=== PATIENT | female | born 1970 | race Caucasian/White ===

== ENCOUNTER 2019-03-16 18:33 | Inpatient (IN) | payer OTHER ==
[~2019-03-16] VITALS: Ht 167.6 cm; Wt 60.8 kg
[2019-03-16 19:00] VITALS: BP 110/71
[2019-03-16 19:54] LABS: HEMATOCRIT 34.5 % (37.0-47.0); HEMOGLOBIN 11.6 gm/dL (12.0-15.0); MCH 29.4 pg (26.0-34.0); MCHC 33.6 g/dL (28.0-37.0); MCV 87.5 fL (80.0-100.0); PLATELET COUNT 233 thou/uL (150-400); RBC 3.94 mil/uL (4.20-5.00); RDW 13.7 % (10.5-14.5); WBC 20.1 thou/uL (4.0-11.0)
[2019-03-16 20:17] LABS: ABSOLUTE NEUTROPHILS 18.9 thou/uL (1.4-8.2)
[2019-03-16 20:18] LABS: ALBUMIN 2.2 g/dL (3.4-5.0); ANION GAP 8 mmol/L (7-16); BUN 7 mg/dL (7-18); CALCIUM 8.3 mg/dL (8.5-10.1); CHLORIDE 100 mmol/L (98-107); CO2 26 mmol/L (21-32); CREATININE 0.8 mg/dL (0.6-1.0); GLUCOSE 117 mg/dL (74-106); LIPASE 38 U/L (73-393); SGOT 102 U/L (15-37); SGPT 74 U/L (30-65); SODIUM 134 mmol/L (136-145); TOTAL BILIRUBIN 0.9 mg/dL (<0.1-1.0); TROPONIN-I <0.06 ng/mL (<0.06)
[2019-03-16 20:19] LABS: POTASSIUM 2.8 mmol/L (3.5-5.1)
[2019-03-16 21:26] LABS: URINE BILIRUBIN 2+ (Negative); URINE BLOOD 1+ (Negative); URINE CLARITY CLEAR; URINE COLOR YELLOW; URINE GLUCOSE-RANDOM* TRACE (Negative); URINE KETONES NEGATIVE (Negative); URINE LEUKOCYTES-REFLEX NEGATIVE (Negative); URINE NITRITE-REFLEX NEGATIVE (Negative); URINE PROTEIN (DIPSTICK) TRACE (Negative); URINE UROBILINOGEN >= 8.0 E.U./dl (0.2-1.0)
[2019-03-16 21:29] LABS: ICTOTEST (BILI CONFIRMATORY) Positive (Negative)
[2019-03-16 21:39] LABS: SQUAMOUS >10 Many /LPF (0-3)
[2019-03-16 21:41] LABS: URINE WBC-REFLEX 0-5 Rare /HPF (0-5)
[2019-03-16 21:42] LABS: AMORPHOUS URATES Few /LPF (None Seen); BACTERIA-REFLEX None Seen /HPF (None Seen); URINE RBC 0-2 Rare /HPF (0-2)
[2019-03-16 22:34] VITALS: BP 104/54
[2019-03-16 22:46] VITALS: BP 101/59
[2019-03-16 22:58] VITALS: BP 111/68
[2019-03-17 03:37] VITALS: BP 103/55
[2019-03-17 07:05] VITALS: BP 96/59
--- NOTE | 2019-03-17 08:25 | NUR ---
ASSUMED CARE OF PT AT 1900. A&Ox4, COOPERATIVE. VS STABLE, SR ON TELE, AFEBRILE. C/O PAIN DURING INSPIRATION AND COUGH, PAIN MEDS GIVEN WITH PARTIAL RELIEF. ABLE TO SLEEP PART OF SHIFT. ANTIBX GIVEN ORDERED. CULTURES SENT TO LAB. PROGRESSING TOWARDS POC GOALS.
[2019-03-17 10:51] VITALS: BP 100/58
[2019-03-17 12:32] LABS: HEMATOCRIT 32.8 % (37.0-47.0); HEMOGLOBIN 10.9 gm/dL (12.0-15.0); MCH 29.4 pg (26.0-34.0); MCHC 33.3 g/dL (28.0-37.0); MCV 88.3 fL (80.0-100.0); RBC 3.71 mil/uL (4.20-5.00); RDW 13.8 % (10.5-14.5); WBC 18.9 thou/uL (4.0-11.0)
[2019-03-17 12:46] LABS: CALCIUM 8.5 mg/dL (8.5-10.1); CREATININE 0.8 mg/dL (0.6-1.0); MAGNESIUM 2.1 mg/dL (1.8-2.4); POTASSIUM 3.5 mmol/L (3.5-5.1)
[2019-03-17 15:19] VITALS: BP 110/59
--- NOTE | 2019-03-17 15:47 | NUR ---
ASSUMED CARE OF PATIENT AT 0700. VITAL SIGNS STABLE. RECIEVED ULTRASOUND OF ABDOMEN AND CT OF CHEST TODAY WITH AND WITHOUT CONTRAST. PNEUMONIA SEEN ON CT. ULTRASOUND OF ABD FOR HX OF HEP C. PATIENT HAD CHEST PAIN WITH INSPIRATION THIS MORNING, MANAGED WITH PAIN MEDICATION. HOSPITALIST CONSULTED INFECTIOUS DISEASE AND PULMONARY TODAY. PULMONARY GAVE NURSE ORDERS OVER THE PHONE. PATIENT POSTIVE FOR MRSA IN NARES AND PLACED ON CONTACT PRECAUTIONS. CONTINUING TO MONITOR
[2019-03-17 19:30] VITALS: BP 128/59
[2019-03-18 01:05] LABS: IgA 449 mg/dL (87-352); IgG 1628 mg/dL (700-1600); IgM 126 mg/dL (26-217)
[2019-03-18 02:18] LABS: URINE BILIRUBIN NEGATIVE (Negative); URINE BLOOD TRACE (Negative); URINE CLARITY CLEAR; URINE COLOR YELLOW; URINE GLUCOSE-RANDOM* NEGATIVE (Negative); URINE KETONES NEGATIVE (Negative); URINE LEUKOCYTES TRACE (Negative); URINE NITRITE NEGATIVE (Negative); URINE PROTEIN (DIPSTICK) NEGATIVE (Negative)
--- NOTE | 2019-03-18 03:27 | NUR ---
ASSUMED CARE OF PATIENT AT 1900. VSS, AFEBRILE. C/O OF RIGHT SIDED PAIN, RELIEVED WITH PRN MEDICATIONS. UP AD FOREST. FLUIDS RUNNING PER ORDERS, SEE EMAR. NO S/S OF DISTRESS. WORKING TOWARDS POC GOALS.
[2019-03-18 03:55] VITALS: BP 122/85
[2019-03-18 05:32] LABS: HEMATOCRIT 30.4 % (37.0-47.0); HEMOGLOBIN 10.1 gm/dL (12.0-15.0); MCH 29.2 pg (26.0-34.0); MCHC 33.1 g/dL (28.0-37.0); MCV 88.3 fL (80.0-100.0); RBC 3.45 mil/uL (4.20-5.00); RDW 14.3 % (10.5-14.5); WBC 17.4 thou/uL (4.0-11.0)
[2019-03-18 05:55] LABS: CALCIUM 7.8 mg/dL (8.5-10.1); CREATININE 0.8 mg/dL (0.6-1.0)
[2019-03-18 08:19] VITALS: BP 127/69
--- NOTE | 2019-03-18 09:09 | EKG ---
[place] [address] [facility] [place] [address] ELECTROCARDIOGRAM REPORT Name: INDIA RUFF Room #: 357-P ADM IN M.R.#: [id number] Admission: 03/16/19 Attend Phys: Preet Badillo MD Discharge: Date of : 72 Report #: [id number] THIS REPORT FOR: //name// [facility] ED Test Date: 2019-03-16 Test Time: 18:39:20 Pat Name: INDIA RUFF Department: Room: 357 Gender: F Supportive Employment Case Manager: HARIKA : 1970 Requested By: Elke Campbell Order Number: [id number] MD: Donny Ordaz Measurements Intervals [place] Rate: 95 P: 81 MN: 148 QRS: 29 QRSD: 98 T: 83 QT: 343 QTc: 431 Interpretive Statements Sinus rhythm Baseline wander in lead(s) V3 No previous ECG available for comparison Electronically Signed On 03-18-2019 9:09:30 CDT by Donny Ordaz [email or web address] <ELECTRONICALLY SIGNED> By: Donny Ordaz MD, [facility] 03/18/19 0909 [id number] Donny Ordaz MD, FACC /EPI
[2019-03-18 12:13] VITALS: BP 140/86
--- NOTE | 2019-03-18 15:10 | NUR ---
assessment: cm reviewed chart and met with patient at the bedside. PT WAS ADMITTED WITH PNEUOMONIA. PT REPORTS THAT SHE LIVES WITH HER DAUGHTER. PT REPORTS SHE IS FULLY INDEPENDENT WITH ADLS AND AMBULATION. PT REPORTS THAT SHE HAS NOT HAD HH IN THE PAST NOR BEEN TO A SNF. PT REPORTS HAVING A NEBULIZER AT HOME. CM DISCUSSED ROLE. PT DOES NOT ANTICIPATE HAVING ANY NEEDS AT DISCHARGE. PT IS SHOWING PT PAY AND REPORTS SHE HAS NO INSURANCE BUT STATES SHE DID HAVE MEDICAID AT ONE POINT AND STATES SHE SPOKE WITH THEM LAST WEEK AND IT SHOULD GET RE-INSTATED SOON. CM CALLED LEENA IN PRECERT [phone] TO NOTIFY. CM ALSO PROVIDED PATIENT WITH FIND A PCP RESOURCE SHEET.
[2019-03-18 16:44] VITALS: BP 128/76
[2019-03-18 19:29] VITALS: BP 114/67
--- NOTE | 2019-03-18 20:18 | NUR ---
pt is A&OX3, PT is continuing IV abx , breathing treatment and pain management, pt 's vs and o2sat are stable, pt has sob with activites, pt has slowly meeting care plan goal.
[2019-03-19 04:18] VITALS: BP 123/91
[2019-03-19 07:07] LABS: COMPLEMENT-C3 131 mg/dL (82-167); COMPLEMENT-C4 22 mg/dL (14-44)
--- NOTE | 2019-03-19 08:04 | NUR ---
ASSESSMENTS CHARTED, MEDS GIVEN CHARTED. PATIENTS CONDITION WAS DOWN GRADED TO MS DURING SHIFT, TAKEN OFF TELEMETRY. ALERT AND ORIENTED DURING SHIFT. ON ROOM AIR DURING SHIFT. UP AT FOREST. PATIENT IN ISOLATION FOR MRSA COLONIZATION. PATIENT HAS OPEN WOUND ON RIGHT HIP COVERED WITH MEPELEX AFTER SHOWER, HAD BEEN SCABBED OVER AT ADMITTED. SCAB CAUGHT ON LINENS IN BED. VANCO TROUGH DRAWN THROUGH LEFT UPPER ARM PIV SINCE LAB WAS UNABLE TO DRAW. PIV KAIN AND FLUSH EASILY. PLAN IS FOR PATIENT TO CONTINUE ANTIBIOTIC TREATMENT FOR PNEUMONIA.
[2019-03-19 08:15] VITALS: BP 123/78
[2019-03-19] MEDS ORDERED: LEVAQUIN 500 M500 M1 PO (09:00)
[2019-03-19] MEDS ORDERED: RAYOS5 MG PO (09:01)
[2019-03-19] MEDS ORDERED: APAP/CODEINE ELI5 M1 PO (09:02)
[2019-03-19 09:10] LABS: GLYCOHEMOGLOBIN (HGB A1C) 5.3 % (4.8-5.6); HEMOGLOBIN 9.9 g/dL (11.1-15.9)
[2019-03-19 14:00] VITALS: BP 115/66
--- NOTE | 2019-03-19 15:20 | NUR ---
Pt. planning on discharge today. Was in a upbeat mood and talked about her love for history. Pt. had pain in the morning with a non productive cough. Pt. rated pain a 6 and was relieved with pain meds. Patient is afebrile. Patient is upablib and was cooperative with staff
[2019-03-19 17:43] VITALS: BP 115/66
--- NOTE | 2019-03-19 17:53 | NUR ---
PTis A&OX3, PT's coughing and sob have improved, RN has called ID about discharge to home order from DR elizondo, pt will take po abx after D/C , RN has done dischaging teaching, pt understands well, pt's family will last picker pt soon.
--- NOTE | 2019-03-19 18:16 | NUR ---
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
--- NOTE | 2019-03-19 22:00 | HC ---
[facility] [place] [place] [address] CONSULTATION Name: INDIA RUFF Room #: 357-P [facility] IN .R.#: [id number] Admission: 03/16/19 Attend Phys: Preet Badillo MD Discharge: 03/19/19 Date of : 72 Report #: [id number] THIS REPORT FOR: //name// CC: BHAVNA physician/PCP Preet Badillo DATE OF SERVICE: 03/18/2019 INFECTIOUS DISEASE CONSULTATION REASON FOR CONSULTATION: I was asked to evaluate concerning pneumonia and fever. HISTORY OF PRESENT ILLNESS: The patient is a 48-year-old who presents with shortness of breath, chest pain, fever up to 101.9 degrees. Pleuritic type chest pain. Cough with purulent sputum production. No hemoptysis. Previous smoker. Has a history of COPD. Also carries a history of systemic lupus erythematosus with multiple skin eruptions, although this is still inconclusive. She has had a history of MRSA, skin and soft tissue infections. She has been followed by Dr. Hale for several decades, now with no PCP. Has a history of hepatitis C. This has been untreated. No other HIV risk factors. States that she is HIV negative. No travel. No other known exposures. ALLERGIES: None known. MEDICATIONS: As noted on her MAR, having been started on vancomycin, Levaquin, cefepime. PAST MEDICAL HISTORY: COPD, lupus, hepatitis C, abdominal surgery for adhesions, multiple skin and soft tissue infections and bilateral breast implants. FAMILY HISTORY: Noncontributory. SOCIAL HISTORY: Smoker of cigarettes. No alcohol intake, history of marijuana and cocaine use. REVIEW OF SYSTEMS: Ten-point review was negative other than what has been described above. PHYSICAL EXAMINATION: [facility] [address] [place] [address] CONSULTATION Name: SPEEDYINDIA Maximilian Room #: 357-P [facility] IN [facility].#: [id number] Admission: 03/16/19 Attend Phys: Preet Badillo MD Discharge: 03/19/19 Date of : 72 Report #: [id number] VITAL SIGNS: Afebrile and hemodynamically stable. GENERAL: She is alert, cooperative and pleasant, in no acute distress. SKIN: With multiple excoriations over her buttock regions bilaterally, mostly laterally. Multiple scars to her face and upper chest region. No palpable adenopathy. Bilateral breast implants. EYES: Without scleral icterus. MOUTH: Without mucositis. NECK: Supple. LUNGS: Scattered crackles heard right base posteriorly. No consolidation. HEART: Regular, without murmur, gallop or rub. ABDOMEN: Soft with mild diffuse tenderness, no hepatosplenomegaly or mass appreciated. GENITORECTAL: Not performed. EXTREMITIES: Without clubbing, cyanosis or edema. NEUROLOGIC: Cranial nerves intact with normal strength upper and lower extremities with normal sensation. Mood was normal with no evidence of anxiety or depression. LABORATORY STUDIES: Hemoglobin 10.1, white count 17.4, platelet count 269,000. Sedimentation rate 60, creatinine 0.8. Liver function tests normal. C-reactive protein 192. Urinalysis without pyuria or bacteriuria. IgG 1628. NANO pending. Viral respiratory panel pending. Influenza antigen negative. MRSA screen positive. CT scan of the chest, COPD with advanced emphysema, upper lobe predominant right greater than left, multifocal consolidating pneumonia posterior right upper lobe, posterior right lower lobe. IMPRESSION: 1. Community-acquired pneumonia, multifocal, so far no organisms identified. 2. Neurodermatitis. 3. Methicillin-resistant Staphylococcus aureus colonization. 4. Hepatitis C. 5. Possible diagnosis of systemic lupus erythematosus. RECOMMENDATIONS: We will continue IV antibiotic therapy pending culture results. Treat neurodermatitis with anxiolytics and skin protection. Still unclear whether lupus is a true diagnosis. Await NANO. <ELECTRONICALLY SIGNED> By: Lito Baron MD 03/19/190 [id number] Lito Baron MD /nt
[2019-03-20 19:10] LABS: ANA INTERPRETATION Negative (())
[2019-03-21 09:49] LABS: ADENOVIRUS Negative (Negative); INFLUENZA A Negative (Negative); INFLUENZA B Negative (Negative); METAPNEUMOVIRUS Negative (Negative); PARAINFLUENZA 1 Negative (Negative); PARAINFLUENZA 2 Negative (Negative); PARAINFLUENZA 3 Negative (Negative); RHINOVIRUS Negative (Negative); RSV A Negative (Negative); RSV B Negative (Negative)
== END 2019-03-19 18:26 | disposition home or self-care (01) | DRG 871 ==
LOC: ER 18:33 → EROBS 21:49 → 3W 21:49
PROVIDERS: Nurse Practitioner Acute Care; Nurse Practitioner Family; ADMIT Internal Medicine
DX: A41.9 Sepsis, unspecified organism (principal); J15.6 Pneumonia due to other Gram-negative bacteria; J96.10 Chronic respiratory failure, unspecified whether with hypoxia or hypercapnia; E87.6 Hypokalemia; F17.210 Nicotine dependence, cigarettes, uncomplicated; L28.0 Lichen simplex chronicus; B19.20 Unspecified viral hepatitis C without hepatic coma; F14.90 Cocaine use, unspecified, uncomplicated; J43.9 Emphysema, unspecified; M32.9 Systemic lupus erythematosus, unspecified; R74.0 Nonspecific elevation of levels of transaminase and lactic acid dehydrogenase [LDH]; Z22.322 Carrier or suspected carrier of Methicillin resistant Staphylococcus aureus; Z71.6 Tobacco abuse counseling
CPT/HCPCS: 10080; 10879

== ENCOUNTER 2019-05-10 18:56 | Inpatient (IN) | payer OTHER ==
[~2019-05-10] VITALS: Ht 170.2 cm; Wt 64.9 kg
[~2019-05-10 18:56] MED LIST: APAP/CODEINE ELI5 M1 PO; LEVAQUIN 500 M500 M1 PO; RAYOS5 MG PO
[2019-05-10 18:57] VITALS: BP 128/69
[2019-05-10 21:11] LABS: ABSOLUTE NEUTROPHILS 6.9 thou/uL (1.4-8.2); BASOPHILS 0.6 % (0.0-2.0); EOSINOPHILS 4.9 % (0.0-3.0); HEMATOCRIT 36.4 % (37.0-47.0); HEMOGLOBIN 12.1 gm/dL (12.0-15.0); LYMPHOCYTES 18.6 % (24.0-44.0); MCH 28.4 pg (26.0-34.0); MCHC 33.3 g/dL (28.0-37.0); MCV 85.3 fL (80.0-100.0); MONOCYTES 6.8 % (1.0-8.0); PLATELET COUNT 218 thou/uL (150-400); POLYS 69.1 % (36.0-66.0); RBC 4.27 mil/uL (4.20-5.00); RDW 15.3 % (10.5-14.5); WBC 9.9 thou/uL (4.0-11.0)
[2019-05-10 21:23] LABS: CALCIUM 8.5 mg/dL (8.5-10.1); CREATININE 0.8 mg/dL (0.6-1.0); POTASSIUM 3.2 mmol/L (3.5-5.1)
[2019-05-10 21:28] LABS: ALBUMIN 2.5 g/dL (3.4-5.0); DIRECT BILIRUBIN 0.2 mg/dL (<0.1-0.2); TOTAL BILIRUBIN 0.4 mg/dL (<0.1-1.0); TOTAL PROTEIN 7.2 g/dL (6.4-8.2)
[2019-05-10 21:31] LABS: URINE BILIRUBIN NEGATIVE (Negative); URINE BLOOD 3+ (Negative); URINE CLARITY CLEAR; URINE COLOR YELLOW; URINE GLUCOSE-RANDOM* NEGATIVE (Negative); URINE KETONES NEGATIVE (Negative); URINE LEUKOCYTES-REFLEX TRACE (Negative); URINE NITRITE-REFLEX NEGATIVE (Negative); URINE PROTEIN (DIPSTICK) TRACE (Negative)
[2019-05-10] MEDS ORDERED: PROAIR HFA8.5 GM INH (21:31)
[2019-05-10 21:41] LABS: AMP/METHAMP POSITIVE (Negative); BARBITURATES Negative (Negative); BENZODIAZEPINES Negative (Negative); COCAINE Negative (Negative); METHADONE Negative (Negative); OPIATES POSITIVE (Negative); PCP Negative (Negative)
[2019-05-10 22:15] LABS: BACTERIA-REFLEX 1-9 Few /HPF (None Seen); CASTS None Seen /LPF (None Seen); CRYSTALS None Seen /LPF (None Seen); MUCUS 0-3 Light strn/LPF (None Seen); SQUAMOUS 4-10 Moderate /LPF (0-3); URINE RBC 3-10 Few /HPF (0-2); URINE WBC-REFLEX 0-5 Rare /HPF (0-5)
[2019-05-10 22:54] VITALS: BP 107/57
[2019-05-10 23:11] VITALS: BP 99/54
--- NOTE | 2019-05-11 00:54 | NUR ---
PT CAME TO UNIT AROUND 2330. ADMISSION ASSESSMENT COMPLETED. A&O X 4. PT DENIES DRUG USE ALTHOUGH TESTED POSITIVE FOR OPIATES AND METH. SAYS IT IS BECAUSE SHE TOOK SOME PAIN MEDICINE FROM HER MOM. OSMAR DOUBLE LUMEN PICC DUE TO HARD STICK WITH NS @80ML/HR. CELLULITIS COVER ENTIRE LLE UP TO THE KNEE. TWO CIRCULAR BLISTERS FROM RECENT ABSCESSES ON EACH LEG. RATES PAIN AT 5, BUT SAYS SHE HAS GOTTEN USED TO IT. PT NOW RESTING COMFORTABLY IN BED WITH LLE ELEVATED.
[2019-05-11 01:36] VITALS: BP 99/55
[2019-05-11 03:31] VITALS: BP 99/60
[2019-05-11 04:38] LABS: ALBUMIN 2.1 g/dL (3.4-5.0); CALCIUM 8.1 mg/dL (8.5-10.1); CREATININE 0.7 mg/dL (0.6-1.0); POTASSIUM 3.3 mmol/L (3.5-5.1); TOTAL BILIRUBIN 0.3 mg/dL (<0.1-1.0); TOTAL PROTEIN 6.5 g/dL (6.4-8.2)
[2019-05-11 04:48] LABS: HEMOGLOBIN 11.4 gm/dL (12.0-15.0); MCHC 32.4 g/dL (28.0-37.0); MCV 86.5 fL (80.0-100.0); RBC 4.05 mil/uL (4.20-5.00); RDW 15.5 % (10.5-14.5); WBC 7.9 thou/uL (4.0-11.0)
[2019-05-11 07:30] VITALS: BP 102/67
--- NOTE | 2019-05-11 08:42 | NUR ---
PATIENT SLEEPING AT THIS TIME IV FLUIDS INFUSING ORDERED.
--- NOTE | 2019-05-11 15:33 | NUR ---
PT UP WITH SBA HAS STEADY GAIT.IS BRUSHING HER TEETH AND CLEANING FACE. PT W/O PAIN OR RESP DISTRESS.
[2019-05-11 15:37] VITALS: BP 109/64
[2019-05-11 21:56] VITALS: BP 107/75
--- NOTE | 2019-05-11 23:33 | NUR ---
PT AMBULATING TO BATHROOM INDEPENDENTLY AND IS TOLERATING FAIR. TYLENOL GIVEN FOR HEADACHE. POSSIBLE DISCHARGE TO HOME 05/11. RESTING COMFORTABLY. NO NEEDS VOICED. CALL LIGHT WITHIN REACH. WILL CONTINUE TO PROVIDE FREQUENT OBSERVATION.
--- NOTE | 2019-05-12 10:33 | NUR ---
PT ASSESSED AT START OF SHIFT. LT LEG LESIONS HEALING. LOWER LEG EDEMATOUS. PT HAD TWISTED HER LEG ON MONDAY PRIOR TO ADMISSION. XRAYS SHOWING NO FRACTURE. ICE PACK PLACED. ENC PT TO USE ICE TO HELP SWELLING AND PAIN. DR. GIBSON IN TO SEE PT AND DISCHARGE PLANNED THIS AM W/ IV ANTIBIOTICS AND F/U W/ WOUND CARE.
[2019-05-12] MEDS ORDERED: CLINDAMYCIN HC300 MG PO (12:05)
[2019-05-12 12:11] VITALS: BP 107/75
--- NOTE | 2019-05-14 09:51 | HC ---
[facility] [place] [address] CONSULTATION Name: INDIA RUFF Room #: 444-P [facility] IN M.R.#: [id number] Admission: 05/10/19 Attend Phys: Cristobal Francois MD Discharge: 05/12/19 Date of : 72 Report #: [id number] THIS REPORT FOR: //name// CC: Sebastian Francois [facility] physician/PCP DATE OF SERVICE: 05/11/2019 WOUND CARE CONSULTATION NOTE REASON FOR CONSULTATION: Cellulitis of left leg in the setting of systemic lupus erythematosus and skin ulcers. 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 She is admitted with small ulcers of the left leg and worsening cellulitis of the left leg. She is currently receiving intravenous vancomycin. PAST MEDICAL HISTORY: 1. Systemic lupus erythematosus. 2. Recent community-acquired pneumonia. 3. Tobaccoism, everyday smoker. 4. Untreated hepatitis C. 5. COPD and asthma. PAST SURGICAL HISTORY: 1. Multiple abdominal surgeries for adhesions. 2. Multiple incision and drainage of lupus skin ulcers of lower extremities. MEDICATIONS: See chart. PHYSICAL EXAMINATION: GENERAL: Shows chronically ill-appearing 48-year-old woman who is alert, pleasant, and conversant. HEENT: Mucous membranes are moist. NECK: Supple. LUNGS: Respirations are unlabored. ABDOMEN: Soft. EXTREMITIES: Examination of the lower extremities shows small healed skin scars of both legs. There is a small abrasion with crusted eschar of the right leg. Left leg from knee to foot is swollen, enlarged compared to the right, red, and inflamed with cellulitis. There are some small ulcers with dry adherent eschar, largest measuring 0.7 x 0.4 cm without drainage. [facility] [address] [place] [address] CONSULTATION Name: INDIA RUFF Room #: 444-P [facility] IN [facility].#: [id number] Admission: 05/10/19 Attend Phys: Cristobal Francois MD Discharge: 05/12/19 Date of : 72 Report #: [id number] IMPRESSION: 1. Systemic lupus erythematosus with history of chronic lupus-related skin ulcers. 2. Cellulitis of left leg. 3. Chronic ulcer of left leg related to lupus. 4. Hepatitis C, untreated. 5. Tobaccoism. 6. Severe protein-calorie malnutrition, albumin 2.1. PLAN: Order topical Bactroban to the small wounds of her legs. Continue systemic antibiotics with vancomycin. Wound Care team will follow. <ELECTRONICALLY SIGNED> By: Sebastian Levi MD 05/14/19 0951 [id number] Sebastian Levi MD /nt
== END 2019-05-12 12:43 | disposition home or self-care (01) | DRG 602 ==
LOC: ER 18:56 → EROBS 22:42 → 4S 23:13
PROVIDERS: Nurse Practitioner; ADMIT Hospitalist
PROC: 02H633Z Insertion of Infusion Device into Right Atrium, Percutaneous Approach (ICD-10-PCS; principal; 2019-05-11)
DX: L03.116 Cellulitis of left lower limb (principal); E43 Unspecified severe protein-calorie malnutrition; L97.829 Non-pressure chronic ulcer of other part of left lower leg with unspecified severity; J45.909 Unspecified asthma, uncomplicated; J44.9 Chronic obstructive pulmonary disease, unspecified; M32.9 Systemic lupus erythematosus, unspecified; F17.210 Nicotine dependence, cigarettes, uncomplicated; E87.6 Hypokalemia; S80.812A Abrasion, left lower leg, initial encounter; S80.811A Abrasion, right lower leg, initial encounter; Z68.22 Body mass index [BMI] 22.0-22.9, adult; Z79.899 Other long term (current) drug therapy; X58.XXXA Exposure to other specified factors, initial encounter; Y93.89 Activity, other specified; Y92.89 Other specified places as the place of occurrence of the external cause; Y99.8 Other external cause status
CPT/HCPCS: 10195

== ENCOUNTER 2021-01-04 19:28 | Emergency (ER) | payer OTHER ==
[~2021-01-04] VITALS: Ht 167.6 cm; Wt 61.2 kg
[~2021-01-04 19:28] MED LIST changes: +CLINDAMYCIN HC300 MG PO; +PROAIR HFA8.5 GM INH
[2021-01-04 20:17] LABS: URINE BLOOD TRACE (Negative); URINE CLARITY CLEAR; URINE COLOR YELLOW; URINE GLUCOSE-RANDOM* NEGATIVE (Negative); URINE KETONES NEGATIVE (Negative); URINE LEUKOCYTES-REFLEX NEGATIVE (Negative); URINE NITRITE-REFLEX NEGATIVE (Negative); URINE PROTEIN (DIPSTICK) TRACE (Negative); URINE SPECIFIC GRAVITY >= 1.030 (1.005-1.035)
[2021-01-04 20:20] LABS: ICTOTEST (BILI CONFIRMATORY) Negative (Negative); URINE BILIRUBIN NEGATIVE (Negative)
[2021-01-04 22:46] VITALS: BP 126/75
== END 2021-01-04 22:50 | disposition left against medical advice (07) ==
LOC: ER 19:28
PROVIDERS: Nurse Practitioner
DX: L02.415 Cutaneous abscess of right lower limb (principal); Z20.822 Contact with and (suspected) exposure to COVID-19; J45.909 Unspecified asthma, uncomplicated; J44.9 Chronic obstructive pulmonary disease, unspecified; F17.210 Nicotine dependence, cigarettes, uncomplicated; Z98.890 Other specified postprocedural states; Z79.899 Other long term (current) drug therapy; Z79.51 Long term (current) use of inhaled steroids